=== PATIENT | male | born 1960 | race Caucasian/White ===

== ENCOUNTER 2018-05-18 15:08 | Emergency (ER) | payer OTHER ==
[~2018-05-18] VITALS: Ht 177.8 cm; Wt 86.2 kg
[2018-05-18 15:19] VITALS: BP 164/78
--- NOTE | 2018-05-18 16:15 | ED GENERAL ADULT ---
History of Present Illness General Chief Complaint: Lower Extremity Problems Stated Complaint: LT KNEE PAIN Source: patient Exam Limitations: no limitations Vital Signs & Intake/Output Vital Signs & Intake/Output Vital Signs Date Time Temp Pulse Resp B/P B/P Pulse O2 O2 Flow FiO2 Mean Ox Delivery Rate 05/18 1519 97.5 84 16 164/78 98 Room Air Allergies Coded Allergies: No Known Allergies (05/18/18) Reconcile Medications Lidocaine (Lidoderm) 5 % ADH..PATCH 1 PAT TOP DAILY PRN pain may wear up to 12 hours Triage Note: COMPLAINS L INNER KNEE PAIN FOR THE PAST DAY, TOOK 800 MG PO MOTRIN LAST PM WITH SOME RELIEF Triage Nurses Notes Reviewed? yes Onset: Gradual Duration: day(s): Timing: constant HPI: 57 y/o male with no known PMHx presenting with atraumatic left knee pain since yesterday. Reports pain to his medial knee that does not radiate, is worse with movement and walking. No known trauma, but states he may have twisted it when getting out of his truck. Tried 800mg ibuprofen with moderate releif. Denies numbness or paresthesias. Denies fevers or swelling. (Kristina Brasher) Past History Travel History Traveled to [place] past 21 day No Medical History Any Pertinent Medical History? none Neurological: NONE EENT: NONE Cardiovascular: NONE Respiratory: NONE Gastrointestinal: NONE Hepatic: NONE Renal: NONE Musculoskeletal: NONE Psychiatric: NONE Endocrine: NONE Blood Disorders: NONE Cancer(s): NONE PUBLIC HEALTH REPRESENTATIVE/Reproductive: NONE Surgical History Surgical History: non-contributory Psychosocial History What is your primary language Surinamese Tobacco Use: Current Daily Use Daily Tobacco Use Amount/Type: => 5 Cigarettes daily ETOH Use: denies use Illicit Drug Use: denies illicit drug use Family History Hx Contributory? No (Kristina Brasher) Review of Systems Review of Systems Constitutional: Reports: no symptoms. EENTM: Reports: no symptoms. Respiratory: Reports: no symptoms. Cardiovascular: Reports: no symptoms. GI: Reports: no symptoms. Genitourinary: Reports: no symptoms. Musculoskeletal: Reports: see HPI. Skin: Reports: no symptoms. Neurological/Psychological: Reports: no symptoms. Hematologic/Endocrine: Reports: no symptoms. Immunologic/Allergic: Reports: no symptoms. All Other Systems: Reviewed and Negative (Kristina Brasher) Physical Exam Physical Exam General Appearance: well developed/nourished, no apparent distress, alert, awake , comfortable Head: atraumatic, normal appearance Eyes: Bilateral: normal appearance. Neck: normal inspection Respiratory: normal breath sounds, lungs clear Cardiovascular: regular rate/rhythm Gastrointestinal: soft, non-tender Back: normal inspection Extremities: on exam of the left knee there are no signs of trauma - no ecchymosis or abrasions. +TTP over the medial knee. No knee instability. Sensation intact. Unrestricted ROM with knee flexion and extension. Motor strength 5/5. Distal pulses 2+. Able to bear weight and ambulate with a steady gait. Neurologic/Psych: awake, alert, oriented x 3, normal gait, normal mood/affect Skin: intact, normal color, warm/dry Core Measures ACS in differential dx? No CVA/TIA Diagnosis: No Sepsis Present: No Sepsis Focused Exam Completed? No (Kristina Brasher) Progress Differential Diagnoses I considered the following diagnoses in my evaluation of the patient: [knee sprain vs fx vs OA vs effusion, low concern for septic joint] Plan of Care: Orders Procedure Date/time Status XRY-KNEE COMPLETE LEFT 05/18 1519 Active x-ray IMPRESSION: Suggestion of a small knee joint effusion without other radiographic abnormalities of the bones or joint. Likely with knee sprain affecting the MCL. Rx lidoderm for pain relief. Offered oral NSAID's, but declining oral meds. Declining knee immobilizer. Placed in XOCHILT wrap. Counseled on supportive care and strict return precautions. Initial ED EKG: none (Kristina Brasher) Departure Departure Disposition: HOME OR SELF CARE Condition: Stable Clinical Impression Primary Impression: Left knee pain Referrals: Patient Has No Primary Care Dr (PCP/Family) Additional Instructions: Use lidoderm patches as needed for pain. Use ice and XOCHILT wrap for additional pain relief. Follow up with a primary care provider to establish care and for re -evaluation. Return to the emergency department for any new or worsening symptoms. Departure Forms: Customer Survey General Discharge Information Prescriptions: Current Visit Scripts Lidocaine (Lidoderm) 1 PAT TOP DAILY PRN pain #30 PAT may wear up to 12 hours (Kristina Brasher) PA/PRIMER WATERPROOFING MACHINE OPERATOR Co-Sign Statement Statement: ED Attending supervision documentation- [] I saw and evaluated the patient. I have also reviewed all the pertinent lab results and diagnostic results. I agree with the findings and the plan of care as documented in the PA's/PRIMER WATERPROOFING MACHINE OPERATOR's documentation. [x] I have reviewed the ED Record and agree with the PA's/PRIMER WATERPROOFING MACHINE OPERATOR's documentation. [] Additions or exceptions (if any) to the PAs/PRIMER WATERPROOFING MACHINE OPERATOR's note and plan are summarized below: [] (Will Mullen DO) Critical Care Note Critical Care Note Critical Care Time: non-applicable (Shay JOVEL,Kristina)
--- NOTE | 2018-05-18 16:26 | RADIOLOGY REPORT ---
EXAMINATION: XR KNEE, LEFT CLINICAL INFORMATION: Left knee pain. COMPARISON: None TECHNIQUE: Four views of the left knee. FINDINGS: There is suggestion of a small knee joint effusion. No soft tissue swelling or periarticular calcifications are identified. The bones are normal in mineralization and architecture. The articular spaces are relatively well-preserved without evidence of subchondral sclerosis/cystic changes or marginal spurring. IMPRESSION: Suggestion of a small knee joint effusion without other radiographic abnormalities of the bones or joint.
[2018-05-18] MEDS ORDERED: LIDODERM1 EACH TOP (16:38)
== END 2018-05-18 16:44 ==
LOC: ERH 15:08
DX: M25.562 Pain in left knee (principal)
CPT/HCPCS: 73562-LT